=== PATIENT | male | born 1985 | race Caucasian/White ===

== ENCOUNTER 2017-01-22 13:16 | Emergency (ER) | payer OTHER ==
[2017-01-22 13:22] VITALS: BP 145/87; TEMP 99.2; O2SAT 98
[2017-01-22] MEDS ORDERED: Sodium Chloride 0.9% 1,000 ML IV STA ×2 (13:35→15:23)
--- NOTE | 2017-01-22 13:40 | ED PDOC ---
HPI: Abdomen Time Seen by Provider: 01/22/17 13:38 Chief Complaint (Nursing): Abdominal Pain Chief Complaint (Provider): ABDOMINAL PAIN History Per: Patient (31 Y/O MALE HERE WITH ABDOMINAL PAIN X 4 DAYS AFTER EATING OYSTERS. NOTES CONSTIPATION SINCE ASSOCIATED WITH SPASMOTIC ABDOMINAL PAIN AND VOMITING. NOTES FEVER HIGH 101. DENIES ANY H/O ABDOMINAL SURGERIES. HAS BEEN PRESCRIBED BENTYL AND ZOFRAN BY URGENT CARE WITHOUT IMPROVEMENT.) Past Medical History Reviewed: Historical Data, Nursing Documentation, Vital Signs Vital Signs: Last Vital Signs Temp 99.2 F 01/22/17 13:19 Pulse 80 01/22/17 13:19 Resp 20 01/22/17 13:19 BP 145/87 01/22/17 13:19 Pulse Ox 98 01/22/17 13:40 - Medical History PMH: Asthma - Home Medications Home Medications: Ambulatory Orders Medication Instructions Recorded Docusate Sodium [Colace] 100 mg PO BID #14 capsule 01/22/17 Ondansetron ODT [Zofran ODT] 4 mg PO Q8 PRN #10 odt 01/22/17 Pantoprazole Sodium [Protonix] 20 mg PO DAILY #14 tablet. 01/22/17 Phosphate Enema [Fleet Enema 135 135 ml RC ONCE PRN #1 nma 01/22/17 Ml] Ranitidine HCl [Zantac 75] 75 mg PO BID PRN #10 tablet 01/22/17 - Allergies Allergies/Adverse Reactions: Allergies Allergy/AdvReac Type Severity Reaction Status Date / Time No Known Allergies Allergy Verified 01/22/17 13:19 Review of Systems ROS Statement: Except As Marked, All Systems Reviewed And Found Negative Gastrointestinal: Positive for: Vomiting, Abdominal Pain, Constipation Physical Exam - Reviewed Nursing Documentation Reviewed: Yes Vital Signs Reviewed: Yes - Physical Exam Appears: Positive for: Well, Non-toxic, No Acute Distress Head Exam: Positive for: ATRAUMATIC, NORMAL INSPECTION, NORMOCEPHALIC Skin: Positive for: Normal Color, Warm, DRY Eye Exam: Positive for: EOMI, Normal appearance, PERRL ENT: Positive for: Normal ENT Inspection Neck: Positive for: Normal, Painless ROM Cardiovascular/Chest: Positive for: Regular Rate, Rhythm Respiratory: Positive for: CNT, Normal Breath Sounds Gastrointestinal/Abdominal: Positive for: Normal Exam, Bowel Sounds, Soft Back: Positive for: Normal Inspection Extremity: Positive for: Normal ROM Neurologic/Psych: Positive for: Alert, Oriented - Laboratory Results Result Diagrams: 01/22/17 13:30 01/22/17 13:30 - ECG O2 Sat by Pulse Oximetry: 98 Disposition - Clinical Impression Clinical Impression: Abdominal pain - Patient ED Disposition Is Patient to be Admitted: No - Disposition Referrals: Dago Lim MD [Staff Provider] - Disposition: Routine/Home Disposition Time: 16:51 Condition: FAIR Prescriptions: Docusate Sodium [Colace] 100 mg PO BID #14 capsule Ondansetron ODT [Zofran ODT] 4 mg PO Q8 PRN #10 odt PRN Reason: Nausea/Vomiting Pantoprazole Sodium [Protonix] 20 mg PO DAILY #14 tablet.dr Phosphate Enema [Fleet Enema 135 Ml] 135 ml RC ONCE PRN #1 nma PRN Reason: Constipation Ranitidine HCl [Zantac 75] 75 mg PO BID PRN #10 tablet PRN Reason: Pain, Severe (8-10) Instructions: Constipation (DC), Gastritis (ED) Forms: [facility] ED School/Work Excuse
[2017-01-22 14:12] LABS: BASO % 0.2 % (0.0-2.0); HEMATOCRIT 40.5 % (35.0-51.0); LYMPH # 0.7 K/uL (1.0-4.3); LYMPH % 7.6 % (20.0-40.0); MEAN CELL VOLUME 90.8 fl (80.0-94.0); MEAN CORPUSCULAR HEMOGLOBIN 30.6 pg (27.0-31.0); MEAN CORPUSCULAR HGB CONC 33.7 g/dL (33.0-37.0); MONO # 0.9 K/uL (0.0-0.8); MONO % 9.8 % (0.0-10.0); NEUT # 7.5 K/uL (1.8-7.0); NEUT % 82.4 % (50.0-75.0); PLATELET COUNT 193 K/uL (130-400); RED CELL DISTRIBUTION WIDTH 14.4 % (11.5-14.5); WHITE BLOOD COUNT 9.1 K/uL (4.8-10.8)
[2017-01-22 14:21] LABS: ALB/GLOB RATIO 1.3 (1.0-2.1); ALKALINE PHOSPHATASE 34 U/L (38-126); ALT/SGPT 44 U/L (21-72); AST/SGOT 43 U/L (17-59); BILIRUBIN,TOTAL 0.8 mg/dl (0.2-1.3); BLOOD UREA NITROGEN 17 mg/dl (9-20); CALCIUM 9.3 mg/dL (8.4-10.2); CARBON DIOXIDE 30 mmol/L (22-30); CHLORIDE 94 mmol/L (98-107); GFR AFRICAN-AMERICAN > 60; GLUCOSE,RANDOM 114 mg/dL (75-110); LIPASE 86 U/L (23-300); POTASSIUM 3.4 MMOL/L (3.6-5.0); SODIUM 137 mmol/l (132-148); TOTAL PROTEIN 8.7 G/DL (6.3-8.2)
--- NOTE | 2017-01-22 14:45 | RAD ---
PROCEDURE: Radiographs of the chest and abdomen (obstructive series) HISTORY: ABDOMINAL PAIN COMPARISON: No prior. TECHNIQUE: AP radiograph of the chest, with upright and supine radiographs of the abdomen. FINDINGS: CHEST: Lungs: Clear. Cardiovascular: Normal size heart. No pulmonary vascular congestion. Pleura: No pleural fluid. No pneumothorax. Other findings: None. ABDOMEN AND PELVIS: Bowel: Unremarkable bowel gas pattern. No evidence of mechanical obstruction. Free air: None. Bones: Unremarkable. Other findings: None. IMPRESSION: Unremarkable radiographs of chest and abdomen. No evidence of mechanical bowel obstruction.
[2017-01-22 14:51] LABS: NEUTROPHIL 85 % (42-75); TOTAL CELLS COUNTED 100
[2017-01-22 17:29] LABS: RBC URINE 9 /hpf (0-3); URINE BACTERIA RARE (<OCC); URINE BILIRUBIN NEGATIVE (NEGATIVE); URINE BLOOD NEGATIVE (NEGATIVE); URINE COLOR YELLOW (YELLOW); URINE GLUCOSE (UA) NEG (Normal); URINE KETONE 20 mg/dL (NEGATIVE); URINE LEUKOCYTE ESTERASE NEG Leu/uL (Negative); URINE PROTEIN NEGATIVE (NEGATIVE); WBC URINE 1 /hpf (0-5)
[2017-01-22 17:41] VITALS: PULSE 73; RESP 16
== END 2017-01-22 17:41 | disposition home or self-care (01) ==
LOC: H.ER 13:16
DX: K59.00 Constipation, unspecified (principal); R11.10 Vomiting, unspecified

== ENCOUNTER 2017-02-11 13:55 | Emergency (ER) | payer OTHER ==
[2017-02-11 14:09] VITALS: RESP 18; TEMP 99; O2SAT 99
[2017-02-11] MEDS ORDERED: Iohexol 240 (50 ml) PO ONE (14:45)
[2017-02-11] MEDS ORDERED: Iohexol 240 (50 ml) ONE (14:46)
[2017-02-11] MEDS ORDERED: Sodium Chloride 0.9% 1,000 ML IV ONE ×2 (14:48→16:42)
[2017-02-11] MEDS ORDERED: Sodium Chloride 0.9% 50 ML IV ONE (14:50)
[2017-02-11] MEDS ORDERED: Iohexol 300 100 ML IJ ONE (14:50)
[2017-02-11 15:02] LABS: EOS % 0.1 % (0.0-4.0); HEMOGLOBIN 13.6 g/dL (12.0-18.0); LYMPH # 0.6 K/uL (1.0-4.3); LYMPH % 4.8 % (20.0-40.0); MEAN CELL VOLUME 91.6 fl (80.0-94.0); MEAN CORPUSCULAR HEMOGLOBIN 30.3 pg (27.0-31.0); MEAN PLATELET VOLUME 9.8 fl (7.2-11.7); MONO # 0.3 K/uL (0.0-0.8); NEUT # 10.6 K/uL (1.8-7.0); NEUT % 92.1 % (50.0-75.0); PLATELET COUNT 232 K/uL (130-400); RBC 4.49 Mil/uL (4.40-5.90); RED CELL DISTRIBUTION WIDTH 14.1 % (11.5-14.5); WHITE BLOOD COUNT 11.5 K/uL (4.8-10.8)
--- NOTE | 2017-02-11 15:11 | ED PDOC ---
HPI: Abdomen Time Seen by Provider: 02/11/17 14:28 Chief Complaint (Nursing): GI Problem Chief Complaint (Provider): Abdominal Pain History Per: Patient History/Exam Limitations: no limitations Onset/Duration Of Symptoms: Persistent Outside of [place] travel?: Yes Location Of Pain/Discomfort: Diffuse Quality Of Discomfort: Cramping Associated Symptoms: Nausea, Vomiting, Diarrhea Additional Complaint(s): Minh Escobar is a 31 y/o male presenting to the ER on 02/11/2017 with complaints of diffuse abdominal pain associated with nausea, vomiting, and diarrhea for over a month. Patient was evaluated in this ED three weeks ago with similar symptoms. Upon discharge he was prescribed Bentyl but has been still experiencing persistent symptoms. Today, his symptoms are worse than usual, prompting him to seek medical evaluation. Patient reports he recently traveled to [place]. He denies any chest pain, shortness of breath, or urinary symptoms. Patient states there are no alleviating or exacerbating factors for his pain, which is non-radiating. Past Medical History Reviewed: Historical Data, Nursing Documentation, Vital Signs Vital Signs: Last Vital Signs Temp 99 F 02/11/17 14:05 Pulse 100 H 02/11/17 14:05 Resp 18 02/11/17 14:05 BP 139/82 02/11/17 14:05 Pulse Ox 99 02/11/17 15:13 - Medical History PMH: Asthma - Surgical History Surgical History: No Surg Hx - Family History Family History: States: Unknown Family Hx - Social History Current smoker - smoking cessation education provided: No Alcohol: None Drugs: Denies - Home Medications Home Medications: Ambulatory Orders Medication Instructions Recorded Docusate Sodium [Colace] 100 mg PO BID #14 capsule 01/22/17 Ondansetron ODT [Zofran ODT] 4 mg PO Q8 PRN #10 odt 01/22/17 Pantoprazole Sodium [Protonix] 20 mg PO DAILY #14 tablet. 01/22/17 Phosphate Enema [Fleet Enema 135 135 ml RC ONCE PRN #1 nma 01/22/17 Ml] Ranitidine HCl [Zantac 75] 75 mg PO BID PRN #10 tablet 01/22/17 - Allergies Allergies/Adverse Reactions: Allergies Allergy/AdvReac Type Severity Reaction Status Date / Time No Known Allergies Allergy Verified 01/22/17 13:19 Review of Systems ROS Statement: Except As Marked, All Systems Reviewed And Found Negative Cardiovascular: Negative for: Chest Pain Respiratory: Negative for: Shortness of Breath Gastrointestinal: Positive for: Nausea, Vomiting, Abdominal Pain, Diarrhea Genitourinary Male: Negative for: Dysuria, Frequency, Incontinence Physical Exam - Reviewed Nursing Documentation Reviewed: Yes Vital Signs Reviewed: Yes - Physical Exam Appears: Positive for: Non-toxic, Uncomfortable Head Exam: Positive for: ATRAUMATIC, NORMOCEPHALIC Skin: Positive for: Normal Color. Negative for: Rash Eye Exam: Positive for: Normal appearance, EOMI, PERRL ENT: Positive for: Normal ENT Inspection. Negative for: Pharyngeal Erythema, Tonsillar Exudate, Tonsillar Swelling Neck: Positive for: Normal, Painless ROM, Supple Cardiovascular/Chest: Positive for: Regular Rate, Rhythm. Negative for: Murmur Respiratory: Positive for: Normal Breath Sounds. Negative for: Wheezing, Respiratory Distress Gastrointestinal/Abdominal: Positive for: Normal Exam, Soft. Negative for: Tenderness, Mass, Distended, Guarding, Rebound Male Genital Exam: Positive for: normal genitalia, other (nml cremaster reflex) . Negative for: scrotum tenderness (R), scrotum tenderness (L), testicular tenderness (R), testicular tenderness (L) Extremity: Positive for: Normal ROM. Negative for: Deformity, Swelling Neurologic/Psych: Positive for: Alert, Oriented. Negative for: Motor/Sensory Deficits - Laboratory Results Result Diagrams: 02/11/17 14:48 02/11/17 14:48 - ECG O2 Sat by Pulse Oximetry: 99 Medical Decision Making Medical Decision Makin:28 Initial Impression- 31 y/o male with diffuse abdominal pain; R/o SBO Initial Plan- * CT scan to r/o obstruction * CT Abdomen Pelvis PO & IV Contrast * Amylase * CMP * Lipase * Troponin * CBC w/ differential * Iohexol 50 ml PO * Sodium Chloride 1,000 ml IV * Zofran 4 mg IVP * Urinalysis Documented by Kathe Dumas, acting as a scribe for Ezekiel Strickland MD. All medical record entries made by the Scribe were at my direction and personally dictated by me. I have reviewed the chart and agree that the record accurately reflects my personal performance of the history, physical exam, medical decision making, and the department course for this patient. I have also personally directed, reviewed, and agree with the discharge instructions and disposition. Disposition - Clinical Impression Clinical Impression: Abdominal pain - Patient ED Disposition Is Patient to be Admitted: Transfer of Care Counseled Patient/Family Regarding: Studies Performed, Diagnosis, Need For Followup - Disposition Disposition: Transfer of Care Disposition Time: 17:06 Condition: STABLE
[2017-02-11 15:19] LABS: ALB/GLOB RATIO 1.3 (1.0-2.1); ALBUMIN 4.9 g/dL (3.5-5.0); ALT/SGPT 46 U/L (21-72); AMYLASE 95 U/L (30-110); AST/SGOT 53 U/L (17-59); BLOOD UREA NITROGEN 20 mg/dl (9-20); CALCIUM 9.5 mg/dL (8.4-10.2); GFR AFRICAN-AMERICAN > 60; GFR NON-AFRICAN AMERICAN > 60; LIPASE 70 U/L (23-300)
[2017-02-11 17:03] LABS: SQUAMOUS EPITHIAL < 1 /hpf (0-5); URINE BILIRUBIN NEGATIVE (NEGATIVE); URINE BLOOD NEGATIVE (NEGATIVE); URINE CLARITY CLEAR (Clear); URINE COLOR YELLOW (YELLOW); URINE GLUCOSE (UA) NEG (Normal); URINE LEUKOCYTE ESTERASE NEG Leu/uL (Negative); URINE NITRATE NEGATIVE (NEGATIVE); URINE PROTEIN NEGATIVE (NEGATIVE); URINE UROBILINOGEN 0.2-1.0 mg/dL (0.2-1.0)
--- NOTE | 2017-02-11 17:42 | ED PDOC ---
- Laboratory Results Result Diagrams: 02/11/17 14:48 02/11/17 14:48 Interpretation Of Abn Labs: 11.5 wbc - ECG O2 Sat by Pulse Oximetry: 99 - CT Scan/US ct Other Rad Studies (CT/US): Read By Radiologist Other Rad Interpretation: mesenteric adenitis - Progress ED Course And Treament: 1741: Took over care from Dr. Strickland. Fu on labs and imaging. Here with abd pain, diarrhea, vomit for 1 month. 1850: Stable. AAOx3. Pain free. Tolerated PO. Active. Fu with pcp and GI. Disposition - Clinical Impression Clinical Impression: Mesenteric adenitis - POA Present On Arrival: None - Disposition Referrals: [facility] [Outside] - 02/12/17 Dago Lim MD [Staff Provider] - 02/12/17 Disposition: Routine/Home Disposition Time: 18:51 Condition: STABLE Additional Instructions: Return if not better in 3 days. Instructions: Mesenteric Adenitis (ED) Forms: [employer] (Uzbek)
[2017-02-11 17:49] LABS: BARBITURATES, UR NEGATIVE (NEGATIVE); BENZODIAZEPINES, UR NEGATIVE (NEGATIVE); OPIATES, UR NEGATIVE (NEGATIVE); PHENCYCLIDINE, UR NEGATIVE (NEGATIVE)
[2017-02-11 18:54] LABS: LYMPHOCYTE 6 % (20-50); MONOCYTE 4 % (0-10); NEUTROPHIL 90 % (42-75); TOTAL CELLS COUNTED 100
[2017-02-11 18:55] LABS: PLATELET ESTIMATE NORMAL (NORMAL)
[2017-02-11 19:28] VITALS: BP 138/77; PULSE 77
--- NOTE | 2017-02-12 10:01 | CT ---
PROCEDURE: CT Abdomen and Pelvis with contrast HISTORY: Abdominal pain diffuse with nausea and vomiting COMPARISON: None. TECHNIQUE: CT scan of the abdomen and pelvis was performed after intravenous administration of contrast. Oral contrast was administered. Coronal and sagittal reformatted images were obtained. Contrast dose: 90 mL Omnipaque 300 Radiation dose: Total exam DLP = 399.98 mGy-cm. This CT exam was performed using one or more of the following dose reduction techniques: Automated exposure control, adjustment of the mA and/or kV according to patient size, and/or use of iterative reconstruction technique. FINDINGS: LOWER THORAX: The lung bases are clear. LIVER: The liver is normal in size and there is homogeneous enhancement without focal mass. No intrahepatic biliary ductal dilatation. GALLBLADDER AND BILE DUCTS: There are no calcified gallstones, wall thickening or pericholecystic fluid. PANCREAS: The pancreas is normal in size. No focal mass or ductal dilatation. SPLEEN: The spleen is normal in size and there is homogeneous enhancement without focal mass. ADRENALS: Both adrenal glands are normal in size without discrete nodule. KIDNEYS AND URETERS: Both kidneys are normal in size and there is homogeneous enhancement. No hydronephrosis. No solid mass. VASCULATURE: Normal in appearance. No aortic aneurysm. BOWEL: The small bowel loops are normal in appearance. No evidence of bowel wall thickening or dilatation. The colon is unremarkable. APPENDIX: Normal appendix. PERITONEUM: No free fluid. No free air. LYMPH NODES: There are subcentimeter lymph nodes in the right lower quadrant. BLADDER: Grossly normal in appearance. REPRODUCTIVE: Unremarkable. BONES: No acute fracture. Within normal limits for the patient's age. OTHER FINDINGS: Small sliding hiatal hernia. IMPRESSION: Subcentimeter lymph nodes in the right lower quadrant may represent nonspecific mesenteric adenitis. No evidence of acute appendicitis. No other acute abnormality. A preliminary report was provided by [facility].
== END 2017-02-11 19:07 | disposition home or self-care (01) ==
LOC: H.ER 13:55
DX: I88.0 Nonspecific mesenteric lymphadenitis (principal)